=== PATIENT | female | born 2000 | race Two or more races ===

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

== ENCOUNTER 2022-11-13 08:57 | Emergency (ER) | payer OTHER, MEDICAID ==
[~2022-11-13] VITALS: Ht 160 cm; Wt 56.3 kg
[2022-11-13] MEDS ORDERED: IBUP-1456 PO (18:54)
[2022-11-13 19:43] LABS: Urine Bacteria FEW /hpf (None Seen); Urine Blood Negative /uL (Negative); Urine Mucus FEW (None Seen); Urine Specific Gravity 1.011 (1.001-1.035); Urine WBC 1 /hpf (0 - 5)
[2022-11-13 20:01] VITALS: BP 134/69; PULSE 75; RESP 18; TEMP 98.1; O2SAT 97
== END 2022-11-13 20:22 | disposition home or self-care (01) ==
LOC: ER 08:57
DX: G89.29 Other chronic pain (principal); R10.2 Pelvic and perineal pain; Z98.890 Other specified postprocedural states
CPT/HCPCS: 76856; 81001; 81025

== ENCOUNTER 2024-03-25 15:39 | Emergency (ER) | payer BC, MEDICAID ==
[~2024-03-25] VITALS: Ht 160 cm; Wt 53.9 kg
[~2024-03-25 15:39] MED LIST changes: +IBUP-1456 PO
--- NOTE | 2024-03-25 16:22 | ED.PDOC ---
GI ASSESSMENT HPI Comments 23 year old female presents to the ED with a chief complaint of ABD pain. Patient states that she has N/V/D since 0600 today with associated suprapubic cramping. Patient is , and she is currently about 5-6 weeks . Patient denies vaginal bleeding, fever, chills, headache, or dizziness. Time Seen by MD: 16:07 Primary Care Provider: UNKNOWN Reviewed Notes: Nurses Notes, Medications, Allergies Allergies: Coded Allergies: NO KNOWN ALLERGIES (Unverified , 11/23/21) Home Meds Active Scripts Metoclopramide Hcl (Reglan) 5 Mg Tab, 5 MG PO Q6HP PRN for 10 Days, #40 TAB Prov:JOAN VAZQUEZ MD 03/25/24 Ibuprofen (Ibuprofen) 800 Mg Tab, 1 TAB PO TID PRN, #30 TAB 0 Refills Prov:BETHEL MARCANO 11/13/22 Cephalexin Monohydrate (Cephalexin) 500 Mg Cap, 1 CAP PO TID for 5 Days, #15 CAP Prov:MIRLANDE HAGAN 11/24/21 Information Source: Patient, Significant Other Mode of Arrival: Ambulatory Timing: Hours Duration: Since onset Prehospital treatment: None Quality: Cramping Vomitus: Watery Stool: Watery Severity: Moderate Recent: None Recent Hx of: Current Pain Location: Suprapubic Modifying Factors: Nothing Associated sign and symptoms: Nausea, Vomiting, Diarrhea, Abdominal Pain Past Medical History PAST MEDICAL HISTORY: Denies Surgical History: Denies all surgeries DIRECTOR SPEECH LANGUAGE History: Denies all DIRECTOR SPEECH LANGUAGE Hx Family History Family History: Reviewed,noncontributory to illness, Unknown Social History Smoker: Non-Smoker Alcohol: Denies ETOH Use Drugs: Denies Drug Use Lives In: Home Constitutional: denies: chills, diaphoresis, fatigue, fever, malaise, sweats, weakness, others EENTM: denies: blurred vision, double vision, ear bleeding, ear discharge, ear drainage, ear pain, ear ringing, eye pain, eye redness, hearing loss, mouth pain, mouth swelling, nasal discharge, nose bleeding, nose congestion, nose pain, photophobia, tearing, throat pain, throat swelling, voice changes, others Respiratory: denies: cough, hemoptysis, orthopnea, SOB at rest, shortness of breath, SOB with excertion, stridor, wheezing, others Cardiovascular: denies: chest pain, dizzy spells, diaphoresis, Dyspnea on exertion, edema, irregular heart beat, left arm pain, lightheadedness, palpitations, PND, syncope, others Gastrointestinal: reports: abdominal pain, diarrhea, nausea, poor appetite, vomiting; denies: abdomen distended, blood streaked bowels, constipated, dysphagia, difficulty swallowing, hematemesis, melena, poor fluid intake, rectal bleeding, rectal pain, others Genitourinary: reports: ; denies: abnormal vagina bleeding, burning, dyspareunia, dysuria, flank pain, frequency, hematuria, incontinence, pain, vagina discharge, urgency, others Neurological: denies: dizziness, fainting, headache, left sided numbness, left sided weakness, numbness, paresthesia, pre-existing deficit, right sided numbness, right sided weakness, seizure, speech problems, tingling, tremors, weakness, others Musculoskeletal: denies: back pain, gout, joint pain, joint swelling, muscle pain, muscle stiffness, neck pain, others Integumetry: denies: bruises, change in color, change in hair/nails, dryness, laceration, lesions, lumps, rash, wounds, others Allergic/Immunocompromised: denies: Difficulty Healing, Frequent Infections, Hives, Itching, others Hematologic/Lymphatic: denies: anemia, blood clots, easy bleeding, easy bruising, swollen glands, others Endocrine: denies: excessive hunger, excessive sweating, excessive thirst, excessive urination, flushing, intolerance to cold, intolerance to heat, unexplained weight gain, unexplained weight loss, others Psychiatric: denies: anxiety, bipolar disorder, depression, hopeless, panic disorder, schizophrenia, sleepless, suicidal, others All Other Systems: Reviewed and Negative Physical Exam General Appearance: Mild Distress, Normal HEENT: Normal ENT Inspection, Pharynx Normal, TMs Normal Neck: Full Range of Motion, Non-Tender, Normal, Normal Inspection Respiratory: Chest Non-Tender, Lungs Clear, No Accessory Muscle Use, No Respiratory Distress, Normal Breath Sounds Cardiovascular: No Edema, No JVD, No Murmur, No Gallop, Normal Peripheral Pulses, Regular Rate/Rhythm Breast Exam: Deferred Gastrointestinal: No Organomegaly, Non Tender, No Pulsatile Mass, Normal Bowel Sounds, Soft, Suprapubic, Tenderness Genitalia: Deferred Pelvic: Deferred Rectal: Deferred Extremities: No calf tenderness, Normal capillary refill, Normal inspection, Normal range of motion, Non-tender, No pedal edema Musculoskeletal : Apperance: Normal Neurologic: Alert, credit associate II-XII nml as Tested, No Motor Deficits, Normal Affect, Normal Mood, No Sensory Deficits Cerebellar Function: Normal Reflexes: Normal Skin: Dry, Normal Color, Warm Lymphatic: No Adenopathy Was a procedure done? Was a procedure done?: No GI differential Dx Differential Diagnosis: Other (Threaten/incomplete ) X-Ray, Labs, Meds, VS Vital Signs Date Time Temp Pulse Resp B/P (MAP) Pulse Ox O2 Delivery O2 Flow Rate FiO2 03/25/24 20:00 98.9 99 18 106/67 (80) 100 98.9 03/25/24 17:20 90 16 03/25/24 17:20 98.8 90 16 133/74 (93) 99 98.8 03/25/24 16:08 98.9 110 18 115/62 (79) 96 Lab Test 03/25/24 16:00 03/25/24 15:57 Range/Units White Blood Count 16.9 H 4.4-10.8 10^3/uL Red Blood Count 5.12 4.0-5.20 10^6/uL Hemoglobin 15.6 12.2-16.2 g/dL Hematocrit 46.8 H 36.0-46.0 % Mean Corpuscular Volume 91.4 80.0-100.0 fL Mean Corpuscular Hemoglobin 30.6 28.0-32.0 pg Mean Corpuscular Hemoglobin Concent 33.4 32.0-36.0 g/dL Red Cell Distribution Width 13.6 11.8-14.3 % Platelet Count 303 140-450 10^3/uL Mean Platelet Volume 8.4 6.9-10.8 fL Neutrophils (%) (Auto) 86.5 H 37.0-80.0 % Lymphocytes (%) (Auto) 6.8 L 10.0-50.0 % Monocytes (%) (Auto) 6.3 0.0-12.0 % Eosinophils (%) (Auto) 0.1 0.0-7.0 % Basophils (%) (Auto) 0.3 0.0-2.0 % Neutrophils # (Auto) 14.6 H 1.6-8.6 10 ^3/uL Lymphocytes # (Auto) 1.1 0.4-5.4 10 ^3/uL Monocytes # (Auto) 1.1 0-1.3 10 ^3/uL Eosinophils # (Auto) 0 0-0.8 10 ^3/uL Basophils # (Auto) 0 0-0.2 10 ^3/uL Nucleated Red Blood Cells 0.0 % Sodium Level 138 136-145 mmol/L Potassium Level 4.3 3.5-5.1 mmol/L Chloride Level 106 98-107 mmol/L Carbon Dioxide Level 20 20-31 mmol/L Anion Gap 12 5-15 Blood Urea Nitrogen 11 9-23 mg/dL Creatinine 0.71 0.550-1.02 mg/dL Glomerular Filtration Rate Calc 124 >90 mL/min BUN/Creatinine Ratio 15.5 10.0-20.0 Serum Glucose 77 74-106 mg/dL Calcium Level 10.5 H 8.7-10.4 mg/dL Total Bilirubin 0.9 0.2-1.0 mg/dL Aspartate Amino Transferase (AST) 12 L 13-40 U/L Alanine Aminotransferase (ALT) 13 7-40 U/L Alkaline Phosphatase 65 46-116 U/L Total Protein 7.2 5.7-8.2 g/dL Albumin 4.8 3.2-4.8 g/dL Beta HCG, Quantitative 95758.5 H 1.5-4.2 mIU/mL Urine Color Yellow Yellow Urine Clarity Turbid H Clear Urine pH 5.5 5.0-9.0 Urine Specific Reeders 1.035 1.001-1.035 Urine Protein 1+ H Negative Urine Ketones 4+ H Negative Urine Blood Trace H Negative /uL Urine Nitrite Negative Negative Urine Bilirubin Negative Negative Urine Urobilinogen Normal Negative mg/dL Urine Leukocyte Esterase Negative Negative /uL Urine RBC 6 0 - 4 /hpf Urine WBC 5 0 - 5 /hpf Urine Squamous Epithelial Cells Few <5 /hpf Urine Bacteria Few H None Seen /hpf Urine Mucus Few None Seen Urine Glucose 4+ H Normal mg/dL Current Medications Medications (Trade) Dose Ordered Sig/Sarah Route Start Time Stop Time Status Last Admin Ondansetron HCl (Zofran Po) 4 mg ONCE ONCE PO 03/25/24 20:45 03/25/24 20:46 DC 03/25/24 20:33 Acetaminophen (Tylenol Tablet) 1,000 mg ONCE ONCE PO 03/25/24 20:45 03/25/24 20:46 DC 03/25/24 20:43 Metoclopramide HCl (Reglan Tablet) 5 mg ONCE ONCE PO 03/25/24 20:45 03/25/24 20:46 DC 03/25/24 20:43 [place] [id number] Ph: [phone] DIAGNOSTIC IMAGING Diagnostic Imaging Report : [id number] Signed PATIENT: DAVID GODOYACCT: [id number] UNIT: [id number] : 2000 LOC: ER ROOM / BED: / AGE / SEX: 23 / F ADM STATUS: [facility] ER SERVICE [id number] ORDERING PHYSICIAN: JOAN VAZQUEZ MD PROCEDURE(s): OB4US - OB ULTRASOUND COMP LESS 14WKS REASON: cramping / pain ORDER NUMBER(s): [id number], ACCESSION NUMBER(s): [id number] Procedure: US OB ULTRASOUND COMP LESS 14WKS Study Date and Requested Time: 03/25/2024 05:45 PM Study Description: US OB ULTRASOUND COMP LESS 14WKS History: cramping / pain Comparison: None Technique: Multiple high resolution louise-scale images obtained of the uterus, fetus, and other gestational components with M-mode scanning for evaluation of heart rate. Findings: Single live intrauterine with gestational sac, yolk sac, and fetus visualized. Possible debris within the gestational sac. heart rate of 83 bpm. Estimated gestational age 5 weeks/ 5 days based on crown-rump length of 0.23 cm mean gestational sac diameter of 1.48 cm. Uterus measures 6.8 x 5.8 x 6.1 cm in size. Cervical os appears closed. Right ovary measures 3.5 x 3.1 x 2 cm with a 2.1 cm thick walled cyst which may represent a corpus luteal cyst. Left ovary measures 2.7 x 2.5 x 1.7 cm. Normal ovarian color Doppler flow bilaterally. No evidence of free fluid in the cul-de-sac. Impression: Single live intrauterine with heart rate of 83 bpm. Estimated gestational age 5 weeks/ 5 days with estimated date of confinement 11/20/2024. Questionable debris within the gestational sac. 2.1 cm thick walled right ovarian cyst which may represent a corpus luteal cyst. ATED BY: OLGA READ DO DICTATED DATE/TIME: 03/25/241838 SIGNED BY: OLGA READ DO SIGNED DATE/TIME: 03/25/241838 CC: The patient will be discharged to follow up with the primary care proposal coordinator in 1-2 days she will return to the emergency room if problems occur. She has been diagnosed with threatened . She should continue to have bed rest until she follow up with the primary care physician and proposal coordinator. Time of 1ST Reevaluation: 17:07 Reevaluation 1ST: Unchanged Time of 2ND Reevaluation: 17:50 Reevaluation 2ND: Improved Patient Education/Counseling: Diagnosis, Treatment Family Education/Counseling: Diagnosis, Treatment Departure 1 Departure Time of Disposition: 18:00 Impression: Primary Impression: Qualified Codes: Z3A.01 - Less than 8 weeks gestation of Additional Impressions: Lower abdominal pain Threatened Disposition: HOME / SELF CARE / HOMELESS Condition: Stable Additional Instructions: Reassessed patient, vital signs stable. Denies any new symptoms. Patient is able to tolerate PO and ambulate/be mobile at their baseline without concern. Risks and benefits of all medications given or prescribed, if any, discussed. All lab work, imaging and diagnostic studies were reviewed by me. The patient was counseled extensively on my clinical impression, diagnosis, expected course of the disease, and plan, including their follow-up care. Will discharge patient. Patient instructed to follow up with Primary Care Physician/telegraph service clerk within 24-48 hours. Strict return precautions given for further exacerbation of symptoms or for new symptoms. The patient was given the opportunity to ask questions and all questions were answered by myself and the nursing/tech staff. Patient is in agreement with the care plan. The patient verbally expressed understanding of the discharge instructions, including the reasons to return to the Emergency Department. e-Prescriptions Metoclopramide Hcl (Reglan) 5 Mg Tab 5 MG PO Q6HP PRN for 10 Days, #40 TAB Prov: JOAN VAZQUEZ MD 03/25/24 Discharged With: Self Critical Care Note Critical Care Time?: No Stability Stability form required: No Heart Score Heart Score: Heart Score Response (Comments) Value History N/A 0 EKG N/A 0 Age N/A 0 Risk Factors N/A 0 Troponin N/A 0 Total 0 I personally scribed for JOAN VAZQUEZ MD ([email or web address]) on 03/25/24 at 16:22. Electronically submitted by Michelle De La Fuente ([email or web address]). JOAN VAZQUEZ MD Mar 25, 2024 16:22 ALFRED MARIN MD Mar 25, 2024 20:00
[2024-03-25 16:29] LABS: Basophils # (auto) 0 10 ^3/uL (0-0.2); Basophils % (auto) 0.3 % (0.0-2.0); Eosinophils # (auto) 0 10 ^3/uL (0-0.8); Eosinophils % (auto) 0.1 % (0.0-7.0); Hematocrit 46.8 % (36.0-46.0); Hemoglobin 15.6 g/dL (12.2-16.2); Lymphocytes # (auto) 1.1 10 ^3/uL (0.4-5.4); Lymphocytes % (auto) 6.8 % (10.0-50.0); Mean Corpuscular Hemoglobin 30.6 pg (28.0-32.0); Mean Corpuscular Hgb Conc. 33.4 g/dL (32.0-36.0); Mean Corpuscular Volume 91.4 fL (80.0-100.0); Monocytes # (auto) 1.1 10 ^3/uL (0-1.3); Monocytes % (auto) 6.3 % (0.0-12.0); Neutrophils # (auto) 14.6 10 ^3/uL (1.6-8.6); Neutrophils % (auto) 86.5 % (37.0-80.0); Platelet Count (auto) 303 10^3/uL (140-450); Red Blood Cells 5.12 10^6/uL (4.0-5.20); Red Cell Distribution Width 13.6 % (11.8-14.3); White Blood Cell 16.9 10^3/uL (4.4-10.8)
[2024-03-25 17:13] LABS: Alanine Aminotransferase 13 U/L (7-40); Alkaline Phosphatase 65 U/L (46-116); Anion Gap 12 (5-15); BUN/Creatinine Ratio 15.5 (10.0-20.0); Blood Urea Nitrogen 11 mg/dL (9-23); Chloride 106 mmol/L (98-107); Glucose 77 mg/dL (74-106); Potassium 4.3 mmol/L (3.5-5.1); Sodium 138 mmol/L (136-145)
[2024-03-25 17:14] LABS: Albumin 4.8 g/dL (3.2-4.8); Bilirubin, Total 0.9 mg/dL (0.2-1.0); Total Protein 7.2 g/dL (5.7-8.2)
[2024-03-25 17:16] LABS: Aspartate Aminotransferase 12 U/L (13-40); Calcium 10.5 mg/dL (8.7-10.4); Carbon Dioxide 20 mmol/L (20-31)
[2024-03-25] MEDS: METOCLOPRAMIDE HCL 10 MG TAB PO ONE ×2 (17:22→20:43)
[2024-03-25] MEDS: ACETAMINOPHEN 500 MG TAB PO ONE ×2 (17:22→20:43)
[2024-03-25] MEDS ORDERED: METO5TAB67 PO (17:49)
--- NOTE | 2024-03-25 18:41 | DVH ---
Procedure: US OB ULTRASOUND COMP LESS 14WKS Study Date and Requested Time: 03/25/2024 05:45 PM Study Description: US OB ULTRASOUND COMP LESS 14WKS History: cramping / pain Comparison: None Technique: Multiple high resolution louise-scale images obtained of the uterus, fetus, and other gestat ional components with M-mode scanning for evaluation of heart rate. Findings: Single live intrauterine with gestational sac, yolk sac, and fetus visualized. Possible margarette ris within the gestational sac. heart rate of 83 bpm. Estimated gestational age 5 weeks/ 5 days based on crown-rump length of 0.23 cm mean gestational sac diameter of 1.48 cm. Uterus measures 6.8 x 5.8 x 6.1 cm in size. Cervical os appears closed. Right ovary measures 3.5 x 3.1 x 2 cm with a 2.1 cm thick walled cyst which may represent a corpus dwayne teal cyst. Left ovary measures 2.7 x 2.5 x 1.7 cm. Normal ovarian color Doppler flow bilaterally. No evidence of free fluid in the cul-de-sac. Impression: Single live intrauterine with heart rate of 83 bpm. Estimated gestational age 5 weeks / 5 days with estimated date of confinement 11/20/2024. Questionable debris within the gestational sac. 2.1 cm thick walled right ovarian cyst which may represent a corpus luteal cyst.
[2024-03-25 19:01] LABS: Urine Bacteria FEW /hpf (None Seen); Urine Blood TRACE /uL (Negative); Urine Clarity Turbid (Clear); Urine Color Yellow (Yellow); Urine Mucus FEW (None Seen); Urine Protein, UAD 1+ (Negative); Urine Specific Gravity 1.035 (1.001-1.035); Urine Urobilinogen Normal (Negative); Urine WBC 5 /hpf (0 - 5); Urine pH 5.5 (5.0-9.0)
[2024-03-25 20:00] VITALS: BP 106/67; PULSE 99; RESP 18; TEMP 98.9; O2SAT 100
[2024-03-25] MEDS ORDERED: ONDANSETRON ODT 4 MG TAB PO ONE (20:30)
[2024-03-25] MEDS: ONDANSETRON ODT 4 MG TAB PO ONE (20:33)
== END 2024-03-25 21:04 | disposition home or self-care (01) ==
LOC: ER 15:39
DX: O20.0 Threatened abortion (principal); R10.2 Pelvic and perineal pain; O26.891 Other specified pregnancy related conditions, first trimester; Z3A.01 Less than 8 weeks gestation of pregnancy; Z79.899 Other long term (current) drug therapy
CPT/HCPCS: 36415; 76801; 80053; 81001; 84702; 85025; 99284; J8597; Q0162

== ENCOUNTER 2024-05-03 20:08 | Emergency (ER) | payer BC, MEDICAID ==
[~2024-05-03] VITALS: Ht 160 cm; Wt 53.6 kg
[2024-05-03 20:08] VITALS: TEMP 97.5
[~2024-05-03 20:08] MED LIST changes: +METO5TAB67 PO
[2024-05-03 20:14] VITALS: BP 115/80; PULSE 101; RESP 16; O2SAT 95
[2024-05-03] MEDS: LIDOCAINE 1% HCL (LOCAL ANESTH.) INJ 20ML MDV ID ONE (20:32)
[2024-05-03] MEDS ORDERED: IBUP1TAB5 PO (20:49)
[2024-05-03] MEDS ORDERED: AUG875T PO (20:49)
--- NOTE | 2024-05-03 20:49 | ED.PDOC ---
HPI Comments THIS IS A 23-YEAR-OLD FEMALE PRESENTS TO THE ED CHIEF COMPLAINT LACERATION TO RIGHT HAND. PATIENT STATES SHE WAS HOLDING A CANDLE IN A GLASS JAR IN THE GLASS JAR BROKE ON HER RIGHT HAND SLICING HER RIGHT PALM IN THE PROXIMAL RIGHT RING FINGER. DENIES ANY PAIN AT THIS TIME. HE IS CONTROLLED DENIES NUMBNESS OR WEAKNESS. Chief Complaint: Laceration Time Seen by MD: 20:13 Primary Care Provider: UNKNOWN Reviewed Notes: Nurses Notes, Medications, Allergies Allergies: Coded Allergies: NO KNOWN ALLERGIES (Unverified , 11/23/21) Home Meds Active Scripts Ibuprofen Micronized (Ibuprofen) 600 Mg Tab, 600 MG PO TID PRN for 3 Days, #9 TAB Prov:ELIN HARGROVE MILLING MACHINE TENDER 05/03/24 Amoxicillin & Pot Clavulanate (AUGMENTIN TABLET) 875 Mg Tb, 1 TAB PO BID for 5 Days, #10 TAB Prov:ELIN HARGROVE MILLING MACHINE TENDER 05/03/24 Metoclopramide Hcl (Reglan) 5 Mg Tab, 5 MG PO Q6HP PRN for 10 Days, #40 TAB Prov:JOAN VAZQUEZ MD 03/25/24 Ibuprofen (Ibuprofen) 800 Mg Tab, 1 TAB PO TID PRN, #30 TAB 0 Refills Prov:BETHEL MARCANO 11/13/22 Cephalexin Monohydrate (Cephalexin) 500 Mg Cap, 1 CAP PO TID for 5 Days, #15 CAP Prov:MIRLANDE HAGAN MILLING MACHINE TENDER 11/24/21 Information Source: Patient Complexity: Simple Laceration Length (cm): 1 Past Medical History PAST MEDICAL HISTORY: Denies Surgical History: Denies all surgeries SOIL CONSERVATIONIST History: Denies all SOIL CONSERVATIONIST Hx Family History Family History: Reviewed,noncontributory to illness, Unknown Social History Smoker: Non-Smoker Alcohol: Denies ETOH Use Drugs: Denies Drug Use Lives In: Home Constitutional: denies: chills, diaphoresis, fatigue, fever, malaise, sweats, weakness, others EENTM: denies: blurred vision, double vision, ear bleeding, ear discharge, ear drainage, ear pain, ear ringing, eye pain, eye redness, hearing loss, mouth pain, mouth swelling, nasal discharge, nose bleeding, nose congestion, nose pain, photophobia, tearing, throat pain, throat swelling, voice changes, others Respiratory: denies: cough, hemoptysis, orthopnea, SOB at rest, shortness of breath, SOB with excertion, stridor, wheezing, others Cardiovascular: denies: chest pain, dizzy spells, diaphoresis, Dyspnea on exertion, edema, irregular heart beat, left arm pain, lightheadedness, palpitations, PND, syncope, others Gastrointestinal: denies: abdomen distended, abdominal pain, blood streaked bowels, constipated, diarrhea, dysphagia, difficulty swallowing, hematemesis, melena, nausea, poor appetite, poor fluid intake, rectal bleeding, rectal pain, vomiting, others Genitourinary: denies: abnormal vagina bleeding, burning, dyspareunia, dysuria, flank pain, frequency, hematuria, incontinence, pain, , vagina discharge, urgency, others Neurological: denies: dizziness, fainting, headache, left sided numbness, left sided weakness, numbness, paresthesia, pre-existing deficit, right sided numbness, right sided weakness, seizure, speech problems, tingling, tremors, weakness, others Musculoskeletal: denies: back pain, gout, joint pain, joint swelling, muscle pain, muscle stiffness, neck pain, others Integumetry: reports: laceration (RIGHT HAND PALM ASPECT); denies: bruises, change in color, change in hair/nails, dryness, lesions, lumps, rash, wounds, others Allergic/Immunocompromised: denies: Difficulty Healing, Frequent Infections, Hives, Itching, others Hematologic/Lymphatic: denies: anemia, blood clots, easy bleeding, easy bruising, swollen glands, others Endocrine: denies: excessive hunger, excessive sweating, excessive thirst, excessive urination, flushing, intolerance to cold, intolerance to heat, unexplained weight gain, unexplained weight loss, others Psychiatric: denies: anxiety, bipolar disorder, depression, hopeless, panic disorder, schizophrenia, sleepless, suicidal, others Physical Exam General Appearance: No Apparent Distress, Normal HEENT: Pharynx Normal Neck: Full Range of Motion, Non-Tender Respiratory: Lungs Clear, No Respiratory Distress, Normal Breath Sounds Cardiovascular: No Murmur, Normal Peripheral Pulses, Regular Rate/Rhythm Breast Exam: Deferred Gastrointestinal: Non Tender, Soft Genitalia: Deferred Pelvic: Deferred Rectal: Deferred Extremities: Normal capillary refill, Normal inspection, Normal range of motion, Non-tender, No pedal edema Musculoskeletal : Apperance: Normal Neurologic: Alert, bung dropper II-XII nml as Tested, No Motor Deficits, Normal Affect, Normal Mood, No Sensory Deficits Cerebellar Function: Normal Reflexes: Normal Skin: Dry, Lacerations (1 CM LACERATION RIGHT PALM ASPECT INTO PROXIMAL RING FINGER ANTERIOR ASPECT. CONTROLLED NO NOTED OBVIOUS FOREIGN BODY.), Normal Color, Warm Lymphatic: No Adenopathy Was a procedure done? Was a procedure done?: Yes Sedation Sedation?: No Informed consent obtained: Yes Laceration Repair : Location RIGHT HAND PALM ASPECT AND PROXIMAL ANTERIOR RING FINGER Length 1 CM Anesthetic: Lidocaine, Without epi Laceration Repair Prep: Saline Laceration Repair Wound Comple: epidermis/dermis repair Laceration Repair: Number of sutures (3) Informed consent obtained: Yes Risks, benefits, and alternati: Yes Notes PATIENT TOLERATED WELL WITH MINIMAL BLOOD LOSS Differential diagnosis Generic Laceration: Retained Foriegn Body, Neurovascular Injury, Abrasion/Contusion, Laceration X-Ray, Labs, Meds, VS Vital Signs Date Time Temp Pulse Resp B/P (MAP) Pulse Ox O2 Delivery O2 Flow Rate FiO2 05/03/24 20:14 97.5 101 16 115/80 (92) 95 05/03/24 20:08 Room Air 05/03/24 20:08 97.5 107 16 115/80 (92) 95 97.5 Time of 1ST Reevaluation: 20:48 Reevaluation 1ST: Unchanged Patient Education/Counseling: Diagnosis, Treatment, Prognosis, Need For Follow Up Family Education/Counseling: Diagnosis, Treatment, Prognosis, Need For Follow Up Departure 1 Departure Time of Disposition: 20:48 Impression: Primary Impression: Laceration of hand Qualified Codes: S61.411A - Laceration without foreign body of right hand, initial encounter Disposition: HOME / SELF CARE / HOMELESS Condition: Stable e-Prescriptions Ibuprofen Micronized (Ibuprofen) 600 Mg Tab 600 MG PO TID PRN for 3 Days, #9 TAB Prov: ELIN HARGROVE 05/03/24 Amoxicillin & Pot Clavulanate (AUGMENTIN TABLET) 875 Mg Tb 1 TAB PO BID for 5 Days, #10 TAB Prov: ELIN HARGROVE 05/03/24 Discharged With: Self Critical Care Note Critical Care Time?: No Stability Stability form required: No ELIN HARGROVE May 03, 2024 20:49
== END 2024-05-03 21:10 | disposition home or self-care (01) ==
LOC: ER 20:08
DX: S61.411A Laceration without foreign body of right hand, initial encounter (principal); Z79.899 Other long term (current) drug therapy; W25.XXXA Contact with sharp glass, initial encounter; Y93.89 Activity, other specified; Y92.89 Other specified places as the place of occurrence of the external cause; Y99.8 Other external cause status
CPT/HCPCS: 12001; 99283; J2003

== ENCOUNTER 2024-05-06 15:04 | Emergency (ER) | payer BC, MEDICAID ==
[~2024-05-06] VITALS: Ht 160 cm; Wt 52.6 kg
[~2024-05-06 15:04] MED LIST changes: +AUG875T PO; +IBUP1TAB5 PO
[2024-05-06 16:49] VITALS: BP 110/58; PULSE 83; RESP 16; TEMP 98.7; O2SAT 97
--- NOTE | 2024-05-06 16:59 | ED.PDOC ---
History of Present Illness(SKN HPI Comments suture removal Chief Complaint: Suture Removal Time Seen by MD: 16:17 Primary Care Provider: NONE Allergies: Coded Allergies: NO KNOWN ALLERGIES (Unverified , 11/23/21) Home Meds Active Scripts Metoclopramide Hcl (Reglan) 5 Mg Tab, 5 MG PO Q6HP PRN for 10 Days, #40 TAB Prov:JOAN VAZQUEZ MD 03/25/24 Ibuprofen (Ibuprofen) 800 Mg Tab, 1 TAB PO TID PRN, #30 TAB 0 Refills Prov:BETHEL MARCANO 11/13/22 Cephalexin Monohydrate (Cephalexin) 500 Mg Cap, 1 CAP PO TID for 5 Days, #15 CAP Prov:MIRLANDE HAGAN SUPERVISOR SUNGLASSES 11/24/21 Discontinued Scripts Amoxicillin & Pot Clavulanate (AUGMENTIN TABLET) 875 Mg Tb, 1 TAB PO BID for 5 Days, #10 TAB Prov:ELIN HARGROVE SUPERVISOR SUNGLASSES 05/03/24 Ibuprofen Micronized (Ibuprofen) 600 Mg Tab, 600 MG PO TID PRN for 3 Days, #9 TAB Prov:ELIN HARGROVE SUPERVISOR SUNGLASSES 05/03/24 Mode of Arrival: Ambulatory Past Medical History PAST MEDICAL HISTORY: Denies Surgical History: Denies all surgeries LABORATORY CLERK History: Denies all LABORATORY CLERK Hx Family History Family History: Reviewed,noncontributory to illness, Unknown Social History Smoker: Non-Smoker Alcohol: Denies ETOH Use Drugs: Denies Drug Use Lives In: Home All Other Systems: Reviewed and Negative (per hpi) Physical Exam General Appearance: No Apparent Distress, Normal HEENT: Normal ENT Inspection, Pharynx Normal, TMs Normal Neck: Full Range of Motion, Non-Tender, Normal, Normal Inspection Respiratory: Chest Non-Tender, Lungs Clear, No Accessory Muscle Use, No Respiratory Distress, Normal Breath Sounds Cardiovascular: No Edema, No JVD, No Murmur, No Gallop, Normal Peripheral Pulses, Regular Rate/Rhythm Breast Exam: Deferred Gastrointestinal: No Organomegaly, Non Tender, No Pulsatile Mass, Normal Bowel Sounds, Soft Genitalia: Deferred Pelvic: Deferred Rectal: Deferred Extremities: No calf tenderness, Normal capillary refill, Normal inspection, Normal range of motion, Non-tender, No pedal edema Musculoskeletal : Apperance: Normal Neurologic: Alert, elder counselor II-XII nml as Tested, No Motor Deficits, Normal Affect, Normal Mood, No Sensory Deficits Cerebellar Function: Normal Reflexes: Normal Skin: Dry, Normal Color, Warm Lymphatic: No Adenopathy Was a procedure done? Was a procedure done?: No Differential Diagnosis (INTG) Differential Diagnosis: Other X-Ray, Labs, Meds, VS Vital Signs Date Time Temp Pulse Resp B/P (MAP) Pulse Ox O2 Delivery O2 Flow Rate FiO2 05/06/24 16:49 98.7 83 16 110/58 (75) 97 98.7 05/06/24 16:49 83 16 97 Room Air 05/06/24 15:30 98.7 83 16 110/58 (75) 97 X-Ray, Labs, Meds, VS Comment Suture Removal Suture removal procedure: Alcohol swab used to clean area thoroughly. Used sterile suture removal kit Clean, dry, intact. No discharge seen. Education provided to keep area clean and dry. If gets soiled, use soap and water to clean. Watch out for signs and symptoms of infection including fever, chills, yellow or green discharge, increased pain, swelling etc. Time of 1ST Reevaluation: 16:30 Reevaluation 1ST: Improved Patient Education/Counseling: Diagnosis, Treatment Family Education/Counseling: Diagnosis, Treatment Departure 1 Departure Time of Disposition: 16:59 Impression: Primary Impression: Visit for suture removal Disposition: 01 HOME / SELF CARE / HOMELESS Condition: Stable Additional Instructions: Discharge Note: Drink plenty of fluids. Follow up with your primary Dr. If your condition becomes worse call and follow up with your primary Dr. for instructions or return to the ER if needed. Thank you for visiting [facility]. Critical Care Note Critical Care Time?: No Stability Stability form required: No Heart Score Heart Score: Heart Score Response (Comments) Value History N/A 0 EKG N/A 0 Age N/A 0 Risk Factors N/A 0 Troponin N/A 0 Total 0 WARREN PADILLA HOOP MAKER MACHINE May 06, 2024 16:59
== END 2024-05-06 16:58 | disposition home or self-care (01) ==
LOC: ER 15:04
DX: Z48.02 Encounter for removal of sutures (principal); Z79.899 Other long term (current) drug therapy